=== PATIENT | female | born 1970 | race Caucasian/White ===

== ENCOUNTER → 2021-01-24 | Day surgery (SDC) | payer OTHER ==
[~2021-01-24] VITALS: Ht 165.1 cm; Wt 77.1 kg
[~2021-01-24] MED LIST: AMBIEN10 MG PO; DESYREL50 MG PO; LEVOCETIRIZINE D5 MG PO; LO LOESTRIN FE1 EACH PO; MAGNESIUM OXID400 M2 PO; NORCO 5-325 TA1 EACH PO; OMEPRAZOLE 20MG20 MG PO; ONDANSETRON ODT8 MG PO; SUCRALFATE1 GM PO; VICODIN 10/3251 EACH PO; ZOLPIDEM TARTRA10 MG PO; [UNRECOGNIZED DRUG - OTHER] PO
[2021-01-24 09:36] LABS: HCG (URINE) SCREEN NEGATIVE (NEGATIVE)
[2021-01-24 09:48] LABS: HCT 46.4 % (37.0-47.0); HGB 15.7 g/dl (12.5-16.0); MCH 31.8 pg (25.0-31.0); MCHC 33.8 g/dL (32.0-36.0); MCV 93.9 fL (78.0-100.0); MPV 9.9 fL (6.0-9.5); RBC 4.94 M/uL (4.20-5.40); RDW 13.2 % (11.5-14.0); WBC 10.5 K/uL (4.0-10.5)
[2021-01-24 11:28] LABS: ALBUMIN 3.7 g/dL (3.4-5.0); BILIRUBIN - TOTAL 0.4 mg/dL (0.2-1.0); CREATININE 1.03 mg/dL (0.51-0.95); GLOBULIN (CALCULATION) 4.5 g/dL; POTASSIUM 4.9 mmol/L (3.5-5.1); TOTAL PROTEIN 8.2 g/dL (6.4-8.2)
== END | disposition home or self-care (01) ==
LOC: FAS 08:30
PROVIDERS: Anesthesiology; Surgery
DX: K29.70 Gastritis, unspecified, without bleeding (principal); K58.1 Irritable bowel syndrome with constipation; K21.9 Gastro-esophageal reflux disease without esophagitis; M79.7 Fibromyalgia; Z79.899 Other long term (current) drug therapy
CPT/HCPCS: 36415; 80053; 84703; J2250; J2704; J7120

== ENCOUNTER → 2021-03-02 | Day surgery (SDC) | payer OTHER ==
[~2021-03-02] VITALS: Ht 165.1 cm; Wt 79.4 kg
[2021-03-02 09:07] LABS: HCT 44.3 % (37.0-47.0); HGB 14.8 g/dl (12.5-16.0); MCH 31.1 pg (25.0-31.0); MCHC 33.4 g/dL (32.0-36.0); MCV 93.1 fL (78.0-100.0); MPV 10.2 fL (6.0-9.5); RBC 4.76 M/uL (4.20-5.40); RDW 12.6 % (11.5-14.0); WBC 8.1 K/uL (4.0-10.5)
[2021-03-02 09:42] LABS: ALBUMIN 3.5 g/dL (3.4-5.0); BILIRUBIN - TOTAL 0.4 mg/dL (0.2-1.0); BUN/CREAT RATIO (CALC) 15.5 RATIO; CREATININE 0.97 mg/dL (0.51-0.95); GLOBULIN (CALCULATION) 4.2 g/dL; POTASSIUM 4.4 mmol/L (3.5-5.1); TOTAL PROTEIN 7.7 g/dL (6.4-8.2)
== END | disposition home or self-care (01) ==
LOC: FAS 08:03
PROVIDERS: Surgery
DX: K80.10 Calculus of gallbladder with chronic cholecystitis without obstruction (principal); K21.9 Gastro-esophageal reflux disease without esophagitis; Z98.51 Tubal ligation status; K76.0 Fatty (change of) liver, not elsewhere classified
CPT/HCPCS: 36415; 74300; 80053; 84703; C1758; J1170; J1885; J2250; J2405; J2704; J2710; J3010; J7120; Q9967